=== PATIENT | female | born 1995 | race Caucasian/White ===

== ENCOUNTER 2017-08-04 12:19 | Emergency (ER) | payer OTHER ==
[2017-08-04 12:25] VITALS: RESP 18; TEMP 98.1
--- NOTE | 2017-08-04 13:01 | EDPHY ---
H & P Stated Complaint: Fell while climbing on 08/02/17, hut right ribs, now has increased pain. Time Seen by Provider: 08/04/17 13:01 HPI/ROS: CHIEF COMPLAINT: Rib pain following mechanical fall HISTORY OF PRESENT ILLNESS: The patient presents the ED with complaints of ongoing pain and mild dyspnea following a mechanical fall. She was in a rock climbing contest 2 days ago and fell onto a mat. She landed primarily on her back. She has had some pain in her right ribs since the fall. She had mild worsening pain today prompting her visit to the emergency department. The patient denies any additional injury. She denies headache, neck pain, numbness or weakness. The patient is on control pills but states her symptoms began only after her fall. She denies any history of asymmetric calf pain or swelling. The patient denies additional traumatic complaints. REVIEW OF SYSTEMS: A comprehensive 10 point review of systems is otherwise negative aside from elements mentioned in the history of present illness. Source: Patient Exam Limitations: No limitations - Personal History LMP (Females 10-55): 1-7 Days Ago Current Tetanus Diphtheria and Acellular Pertussis (TDAP): Yes - Medical/Surgical History Hx Asthma: No Hx Chronic Respiratory Disease: No Hx Diabetes: No Hx Cardiac Disease: No Hx Renal Disease: No Hx Cirrhosis: No Hx Alcoholism: No Hx HIV/AIDS: No Hx Splenectomy or Spleen Trauma: No Other PMH: denies. - Social History Smoking Status: Never smoked - Physical Exam Exam: General Appearance: Alert, no distress Head: Atraumatic Eyes: Pupils equal, round, reactive ENT, Mouth: No hemotympanum, no oral trauma Neck: Nontender, trachea midline Respiratory: Tenderness to palpation right lateral ribs, no subcutaneous emphysema, no hematoma Cardiovascular: Regular rate and rhythm Abdomen: Abdomen is soft and nontender, pelvis stable Skin: No lacerations, No abrasion Back: No midline T/L/S pain Extremities: Nontender, full range of motion Neurological: A&Ox3, normal motor function, normal sensory exam Constitutional: Initial Vital Signs Temperature (C) 36.7 C 08/04/17 12:21 Heart Rate 73 08/04/17 12:21 Respiratory Rate 18 08/04/17 12:21 Blood Pressure 119/57 L 08/04/17 12:21 O2 Sat (%) 100 08/04/17 12:21 O2 Delivery Mode Room Air Allergies/Adverse Reactions: Penicillins Allergy (Verified 05/21/14 12:56) Medical Decision Making - Diagnostics Imaging Results: Imaging Impressions Chest X-Ray 08/04/17 12:38 Impression: No acute pulmonary disease. Chest x-ray PA lateral: Images reviewed by myself and discussed with radiologist, negative for rib fracture, pneumothorax or hemothorax. ED Course/Re-evaluation: The patient presents to the ED for evaluation of rib pain following a mechanical fall. The patient's vital signs are noted to be stable. She has reproducible tenderness to palpation on exam. Her x-ray demonstrates no evidence of a fracture, pneumothorax or hemothorax. I do feel the patient can have symptomatic management of her rib injury with rest, ibuprofen and instructions to return to the emergency department for the development of any worsening dyspnea or chest pain. Differential Diagnosis: Differential diagnosis considered includes rib fracture, pneumothorax, hemothorax Departure - Departure Disposition: Home, Routine, Self-Care Clinical Impression: Rib injury Condition: Good Instructions: Chest Wall Pain (ED) Additional Instructions: 1. Take Ibuprofen or Motrin 600 mg by mouth three times a day. 2. Please return to the ED for markedly worsening symptoms, difficulty breathing or other concerns. 3. Advance physical activity as tolerated. Referrals: NONE *PRIMARY CARE P,. [Primary Care Provider] - As per Instructions
[2017-08-04 13:20] VITALS: BP 122/65; PULSE 71; O2SAT 95
== END 2017-08-04 14:12 | disposition home or self-care (01) ==
DX: S29.9XXA Unspecified injury of thorax, initial encounter (principal); W18.39XA Other fall on same level, initial encounter; Y99.8 Other external cause status; Y93.31 Activity, mountain climbing, rock climbing and wall climbing

== ENCOUNTER 2017-08-16 16:01 | Emergency (ER) | payer OTHER ==
[2017-08-16 16:20] VITALS: BP 146/70; PULSE 76; RESP 18; TEMP 98.6; O2SAT 98
--- NOTE | 2017-08-16 17:05 | EDPHY ---
H & P Stated Complaint: Sore throat;had wisdom teeth pulled Friday Time Seen by Provider: 08/16/17 17:05 HPI/ROS: HPI: This is a 22-year-old female who presents with Chief Complaint: Sore throat;had wisdom teeth pulled Friday Location: Throat Quality: Sore Duration: 2 days Signs and Symptoms: No fever, no cough, neck stiffness, no headache, no dental pain, no trismus Timing: Constant Severity: Mild Context: Patient reports that on Friday she started Clindamycin 3 times a day and had 3 wisdom teeth removed. Patient reports that she smoked on Friday and then woke up with a hoarse voice. She says that has remained constant. Denies any fever/chills/swollen glands/cough/neck stiffness. She also has misplaced her clindamycin and has 2-3 more days and is requesting a refill. She saw her oral surgeon on and was cleared. Modifying Factors: She has tried no [id number] medications Comment: ROS: see HPI Constitutional: No fever, no chills, no weight loss Eyes: No blurred vision Respiratory: No shortness of breath, no cough Cardiovascular: No chest pain Gastrointestinal: No nausea, no vomiting, no diarrhea Genitourinary: No dysuria Extremities: No myalgias Neurologic: No weakness, no numbness Skin: No rashes Hematologic: No bruising, no bleeding MEDICAL/SURGICAL/SOCIAL HISTORY: Medical history: Generally healthy. Does not take any regular medications. Surgical history: Denies Social history: Student CONSTITUTIONAL: awake and alert, no obvious distress HEENT: Atraumatic and normocephalic, PERRL, EOMI. Tympanic membranes clear. Oropharynx clear, uvula midline, tonsils 1+ without erythema, no exudate and moist pink mucosa. Airway patent. No lymphadenopathy. No meningismus. Cardiovascular: Normal S1/S2, regular rate, regular rhythm, without murmur rub or gallop. PULMONARY/CHEST: Symmetrical and nontender. Clear to auscultation bilaterally. Good air movement. No accessory muscle usage. ABDOMEN: Soft, nondistended, nontender, no rebound, no guarding, no peritoneal signs, no masses or organomegaly. No CVAT. EXTREMITIES: 2/2 pulses, strength 5/5, no deformities, no clubbing, no cyanosis or edema. NEUROLOGICAL: no focal neuro deficits. GCS 15. SKIN: Warm and dry, no erythema. no rash. Good capillary refill. Source: Patient Exam Limitations: No limitations - Personal History LMP (Females 10-55): 8-14 Days Ago Current Tetanus Diphtheria and Acellular Pertussis (TDAP): Yes - Medical/Surgical History Hx Asthma: No Hx Chronic Respiratory Disease: No Hx Diabetes: No Hx Cardiac Disease: No Hx Renal Disease: No Hx Cirrhosis: No Hx Alcoholism: No Hx HIV/AIDS: No Hx Splenectomy or Spleen Trauma: No Other PMH: denies. - Social History Smoking Status: Current some day smoker Constitutional: Initial Vital Signs Temperature (C) 37 C 08/16/17 16:08 Heart Rate 76 08/16/17 16:08 Respiratory Rate 18 08/16/17 16:08 Blood Pressure 146/70 H 08/16/17 16:08 O2 Sat (%) 98 08/16/17 16:08 O2 Delivery Mode Room Air Allergies/Adverse Reactions: Penicillins Allergy (Intermediate, Verified 08/16/17 16:06) Hives Home Medications: Medication Instructions Recorded Clindamycin 150 mg PO 08/16/17 Clindamycin HCl [Clindamycin] 300 mg PO TID #9 cap 08/16/17 oxyCODONE/APAP 5/325 [Percocet 1 tab PO 08/16/17 5/325 (*)] Medical Decision Making ED Course/Re-evaluation: Given 15 mL of viscous lidocaine with adequate relief along with dose of clindamycin No signs of strep pharyngitis/meningitis/malocclusion/dry socket Advised supportive care Refill of clindamycin provided. Differential Diagnosis: Differential diagnosis includes but is not limited to strep throat, throat dryness, hoarseness. - Data Points Medications Given: Discontinued Medications Clindamycin (Clindamycin) 300 mg PO EDNOW ONE PRN Reason: Protocol Stop: 08/16/17 17:11 Last Admin: 08/16/17 17:15 Dose: 300 mg Lidocaine (Lidocaine 2% Viscous) 15 ml PO EDNOW ONE Stop: 08/16/17 17:11 Last Admin: 08/16/17 17:16 Dose: 15 ml Departure - Departure Disposition: Home, Routine, Self-Care Clinical Impression: Has run out of medications, Hoarseness of voice Condition: Good Instructions: Dry Mouth (ED) Referrals: NONE *PRIMARY CARE P,. [Primary Care Provider] - As per Instructions [facility],. [Clinic] - As per Instructions Prescriptions: Clindamycin HCl [Clindamycin] 300 mg PO TID #9 cap
[2017-08-16] MEDS ORDERED: CLINDAMYCIN 150 MG CAP PO ONE (17:10)
[2017-08-16] MEDS ORDERED: LIDOCAINE 2% VISCOUS 15 ML UDCUP PO ONE (17:10)
== END 2017-08-16 17:25 | disposition home or self-care (01) ==
DX: R49.0 Dysphonia (principal); F17.200 Nicotine dependence, unspecified, uncomplicated; Z76.0 Encounter for issue of repeat prescription

== ENCOUNTER 2018-12-13 11:10 | Emergency (ER) | payer OTHER | END 2018-12-13 12:40 | disposition home or self-care (01) ==

== ENCOUNTER 2019-01-27 21:13 | Emergency (ER) | payer OTHER ==
[2019-01-27 21:20] VITALS: BP 127/79
[2019-01-27] MEDS ORDERED: CEPHALEXIN 500 MG CAP PO ONE (21:41)
[2019-01-27] MEDS ORDERED: CEPHALEXIN 500MG PREPACK#4 BTL TAKEHOME ONE (21:41)
--- NOTE | 2019-01-27 21:41 | EDPHY ---
H & P Stated Complaint: UTI symptoms Time Seen by Provider: 01/27/19 21:40 HPI/ROS: HPI CHIEF COMPLAINT: Urinary tract infection. HISTORY OF PRESENT ILLNESS: 23-year-old female presents emergency room with urinary tract infection type symptoms. She reports dysuria and urinary frequency. She denies fever, denies back pain, denies vomiting. She reports over the last month she has had 3-4 urinary tract infections. She states she was treated here initially at the beginning of the month but did not complete her course of antibiotics. She then traveled agent states she was started on antibiotic in a [place]. Got better and believes it was Keflex. She now presents back to the emergency room with 1 day of urinary frequency, dysuria. No back pain no fever no vomiting. Past Medical History: Denies significant medical history Past Surgical History: Denies significant surgical history Social History: Denies drugs alcohol tobacco. Family History: Noncontributory ROS REVIEW OF SYSTEMS: 10 Systems were reviewed and negative with the exception of the elements mentioned in the history of present illness. Exam Constitutional triage nursing summary reviewed, vital signs reviewed, awake/ alert. Eyes normal conjunctivae and sclera, EOMI, PERRLA. HENT normal inspection, atraumatic, moist mucus membranes, no epistaxis, neck supple/ no meningismus, no raccoon eyes. Respiratory clear to auscultation bilaterally, normal breath sounds, no respiratory distress, no wheezing. Cardiovascular rate normal, regular rhythm, no murmur, no edema, distal pulses normal. Gastrointestinal soft, non-tender, no rebound, no guarding, normal bowel sounds, no distension, no pulsatile mass. Genitourinary no CVA tenderness. Musculoskeletal no midline vertebral tenderness, full range of motion, no calf swelling, no tenderness of extremities, no meningismus, good pulses, neurovascularly intact. Skin pink, warm, & dry, no rash, skin atraumatic. Neurologic awake, alert and oriented x 3, AAOx3, moves all 4 extremities equally, motor intact, sensory intact, CN II-XII intact, normal cerebellar, normal vision, normal speech. Psychiatric normal mood/affect. Heme/Lymph/Immune no lymphadenopathy. Differential Diagnosis: Includes but is not limited to in a particular order UTI, cystitis, pyelonephritis Medical Decision Making: Patient was previously on Keflex, will start on Macrobid here. Send urine culture. Macrobid take-home and Macrobid prescription. Encourage patient to drink lots of fluids. Stay well-hydrated return emergency room if worsening symptoms. Re-evaluation: Started on macrobid. Urine culture. Return precautions discussed with deuce. Return if worse. Drink lots of fluids. Return if ferver, back pain, vomiting, not doing well. She understands. Source: Patient - Personal History LMP (Females 10-55): Now Current Tetanus/Diphtheria Vaccine: Yes Current Tetanus Diphtheria and Acellular Pertussis (TDAP): Yes - Medical/Surgical History Hx Asthma: No Hx Chronic Respiratory Disease: No Hx Diabetes: No Hx Cardiac Disease: No Hx Renal Disease: No Hx Cirrhosis: No Hx Alcoholism: No Hx HIV/AIDS: No Hx Splenectomy or Spleen Trauma: No Other PMH: right knee surgeryx2, ankle surgery - Social History Smoking Status: Former smoker Constitutional: Initial Vital Signs Temperature (C) 37.0 C 01/27/19 21:16 Heart Rate 64 01/27/19 21:16 Respiratory Rate 16 01/27/19 21:16 Blood Pressure 127/79 H 01/27/19 21:16 O2 Sat (%) 99 01/27/19 21:16 O2 Delivery Mode Room Air Allergies/Adverse Reactions: Penicillins Allergy (Intermediate, Verified 01/27/19 21:20) Hives Home Medications: Medication Instructions Recorded Matilda 28 Tablet 12/13/18 Nitrofurantoin Macrobid [Macrobid] 100 mg PO BID #14 cap 01/27/19 Phenazopyridine HCl [Pyridium] 200 mg PO TID #15 tab 01/27/19 Medical Decision Making - Data Points Microbiology Results: MICROBIOLOGY 01/27/19 21:16 Urine,Clean Catch Urine Culture - Preliminary One [place] Type Medications Given: Discontinued Medications Nitrofurantoin (Macrobid 100mg Prepack#2) 1 btl TAKEHOME EDNOW ONE PRN Reason: Protocol Stop: 01/27/19 21:49 Last Admin: 01/27/19 22:01 Dose: 1 btl Nitrofurantoin Macrocrystals (Macrobid) 100 mg PO EDNOW ONE PRN Reason: Protocol Stop: 01/27/19 21:49 Last Admin: 01/27/19 22:00 Dose: 100 mg Departure - Departure Disposition: Home, Routine, Self-Care Clinical Impression: Urinary tract infection Qualifiers: Urinary tract infection type: acute cystitis Hematuria presence: with hematuria Qualified Code(s): N30.01 - Acute cystitis with hematuria Condition: Good Instructions: Urinary Tract Infection in Women (ED) Additional Instructions: 1. Drink lots of fluids stay well-hydrated 2. Antibiotics as prescribed 3. Return to the emergency room if develops worsening urinary tract infection symptoms including fever, vomiting, not doing well. Referrals: NONE *PRIMARY CARE P,. [Primary Care Provider] - As per Instructions [facility] [[facility]] - As per Instructions Prescriptions: Nitrofurantoin Macrobid [Macrobid] 100 mg PO BID #14 cap Phenazopyridine HCl [Pyridium] 200 mg PO TID #15 tab
[2019-01-27] MEDS ORDERED: NITROFURANTOIN MACROBID 100 MG CAP PO ONE (21:48)
[2019-01-27] MEDS ORDERED: NITROFURANTOIN 100MG PREPACK#2 BTL TAKEHOME ONE (21:48)
[2019-01-27] MEDS ORDERED: PHENAZOPYRIDINE HCL 200 MG TAB ONE (22:43)
== END 2019-01-27 22:47 | disposition home or self-care (01) ==
DX: N30.01 Acute cystitis with hematuria (principal); Z87.891 Personal history of nicotine dependence